=== PATIENT | female | born 1995 | race African-American/Black ===

== ENCOUNTER 2021-11-05 11:33 | Emergency (ER) | payer MEDICAID, SELFPAY ==
--- NOTE | ~2021-11-05 | CT_ITS ---
EXAMINATION: CT abdomen pelvis w con EXAM DATE: 11/05/2021 12:46 INDICATION: Lower abdominal pain, nausea and vomiting started Thursday. TECHNIQUE: Spiral CT of the abdomen and pelvis was performed following intravenous injection of 100 m L Omnipaque 350. Axial, coronal and sagittal images of the abdomen and pelvis were reviewed. The do se-length product (DLP) for this examination was 223.29 mGy-cm. The exposure was tailored according to patient size (auto mA exposure control), and iterative reconstruction (ASIR) was used as additiona l dose reduction technique. There is no prior study for comparison. FINDINGS: The liver, spleen, adrenal glands and pancreas are unremarkable. Gallbladder is unremarkab le. No biliary obstruction. Portal and splenic veins are patent. Kidneys enhance symmetrically. T here is no hydronephrosis. The uterus is anteverted and morphologically normal. The bladder is un remarkable. There is no retroperitoneal or pelvic lymphadenopathy. The appendix is normal. The stomach and small bowel are unremarkable. There is expected amount of c olonic stool. No free intraperitoneal gas. The heart is normal in size. There are no pericardial or pleural effusions. The lung bases are unremarkable. The bones are unremarkable. IMPRESSION: 1. No acute intra-abdominal findings. Reviewed, dictated and finalized at location A.
[2021-11-05 11:33] VITALS: BP 124/79; PULSE 89; RESP 20; TEMP 36.4; O2SAT 100
--- NOTE | 2021-11-05 11:49 | PC.NURSE ---
pt unable to provide urine sample at this time. pt declining straight cath.
[2021-11-05 11:53] LABS: Basophils Percent Auto 0.2 % (0.2-1.2); Eosinophils Percent Auto 0.2 % (0-4.4); Hematocrit 39.4 % (37.0-47.0); Hemoglobin 13.3 g/dL (12.0-15.0); Immature Granulocyte Absolute 0.06 K/mm3 (0.00-0.031); Immature Granulocyte Percent A 0.5 % (0-0.5); Lymphocytes Absolute Auto 1.53 K/mm3 (0.9-3.2); Lymphocytes Percent Auto 12.7 % (18.3-44.2); Mean Corpuscular HGB Conc 33.8 g/dl (32-36); Mean Corpuscular Hemoglobin 28.4 pg (26-34); Mean Corpuscular Volume 84.2 fl (80-100); Mean Platelet Volume 10.5 fl (7.4-10.4); Monocytes Absolute Auto 0.6 K/mm3 (0.1-0.6); Monocytes Percent Auto 5.3 % (2.6-8.5); Neutrophils Absolute Auto 9.8 K/mm3 (1.3-6.7); Neutrophils Percent Auto 81.1 % (45.5-73.1); Platelet Count Result 197 k/mm3 (150-375); Red Blood Count 4.68 M/mm3 (4.2-5.4); Red Cell Distribution Width 12.8 % (11.5-14.5)
--- NOTE | 2021-11-05 11:59 | ED.ABDPAIN ---
HPI - Abdominal Pain General Chief Complaint: Abdominal Pain Stated Complaint: abd pain/cramping Time Seen by Provider: 11/05/21 11:59 Source: patient Mode of arrival: EMS History of Present Illness HPI narrative: Patient is a 25 yo female with a history of nausea/vomiting over the past 6 months, presenting to the ER for evaluation of nausea, vomiting, abdominal pain. Pt reports history of this on Thursday in which she was seen at [facility] and ultimately discharged home. Patient states that she has intermittently had nausea, vomiting, cramping abdominal pain over the past 6 months. Patient states there are no medications at home that work. She reports that she thought her symptoms were attributed to marijuana that she discontinued that several days ago. Denies any drug use or alcohol use. Denies any fever, chills, chest pain, shortness of breath. Denies dysuria, hematuria, vaginal discharge or abnormal bleeding. She is currently menstruating. Patient does not believe she is . She denies dysuria or hematuria. Patient reports generalized, cramping abdominal pain throughout her entire abdomen without radiation to the flank. Patient reports onset this morning while she was at work. Patient states she was able to eat some cereal this morning. No other oral intake today. Patient denies any recent sick contacts. Related Data Allergies Allergy/AdvReac Type Severity Reaction Status Date / Time No Known Allergies Allergy Verified 11/05/21 11:40 Review of Systems Review of Systems: CONSTITUTIONAL: Denies fever, chills, or sweats. EYES: Denies visual changes, redness, or discharge. ENT: Denies rhinorrhea, congestion, sore throat, or otalgia. CARDIOVASCULAR: Denies chest pain, palpitations, or edema. RESPIRATORY: Denies cough or dyspnea. GASTROINTESTINAL: Reports cramping abdominal pain, nausea and vomiting GENITOURINARY: Denies dysuria or hematuria. SKIN: Denies rash or itching. MUSCULOSKELETAL: Denies back pain, joint pain, or myalgia. NEUROLOGIC: Denies headache, numbness, or weakness. [facility] Social History Social History (Updated 11/05/21 @ 12:09 by Chantelle Anaya MD) Smoking status: Never smoker Alcohol intake: never Substance use: former Substance use type: marijuana Gender identity (if verbalized by the patient): Female Exam Narrative: GENERAL: Awake, alert, distressed appearing, rocking on bed, moaning HEAD: Normocephalic, atraumatic. EYES: PERRLA and EOMI. ENT: Nares clear, no rhinorrhea or epistaxis. Mucous membranes moist. NECK: Supple. CHEST: No respiratory distress, breathing even and non labored HEART: Regular rate, sinus rhythm ABDOMEN:Non distended, diffuse tenderness throughout on exam, no rebound or guarding, no flank tenderness, no suprapubic tenderness on exam EXTREMITIES: Normal range of motion. No edema. SKIN: Warm, dry, no rash. NEURO:No focal deficits. Alert and oriented x3 Course Vital Signs Vital signs: Vital Signs Temperature 36.4 C 11/05/21 11:33 Pulse Rate 89 11/05/21 11:33 Respiratory Rate 20 11/05/21 11:33 Blood Pressure 124/79 11/05/21 11:33 Pulse Oximetry 100 11/05/21 11:33 Temperature 36.4 C 11/05/21 11:33 Pulse Rate 86 11/05/21 12:24 Respiratory Rate 16 11/05/21 12:24 Blood Pressure 139/90 11/05/21 12:24 Pulse Oximetry 99 11/05/21 12:24 MDM - Abdominal Pain MDM Narrative Medical decision making narrative: Patient presented to our facility for evaluation of recurrent nausea and vomiting that she has had intermittently over the past 6 months. Patiently recently seen at outside facility with negative work-up, presents here today with stable vital signs. She is uncomfortable appearing on exam with diffuse abdominal tenderness without peritoneal signs. IV access was obtained and labs were drawn. Patient was given IV fluids, antiemetic, Haldol as I thought that this may be consistent with cyclical vomiting given her sympt
[2021-11-05 12:03] LABS: Alanine Aminotransferase 18 U/L (4-35); Albumin Level 4.3 g/dL (3.5-5.1); Alkaline Phosphatase 50 U/L (38-126); Anion Gap 9 mmol/L (8-16); Aspartate Amino Transferase 53 U/L (14-36); Bilirubin,Total 0.5 mg/dL (0.2-1.3); Blood Urea Nitrogen 9 mg/dL (7-17); Calcium 8.6 mg/dL (8.4-10.2); Carbon Dioxide 22 mmol/L (22-30); Chloride 105 mmol/L (98-107); Estimated CRCL calculation 100 ml/min; Estimated Glomerular Filt Rate > 60; Glucose 113 mg/dL (65-110); Lipase 45 U/L (23-300); Potassium 3.6 mmol/L (3.4-5.0); Sodium 136 mmol/L (137-145)
[2021-11-05] MEDS: HALOPERIDOL LACTATE 5 MG/ML VIAL 2.5 MG IV PUSH (12:16)
[2021-11-05] MEDS: FAMOTIDINE 20 MG/2 ML VIAL IV PUSH (12:16)
[2021-11-05] MEDS: LORazepam INJ (*CRX) 2 MG/ML VIAL 0.5 MG IV PUSH (12:17)
[2021-11-05 12:24] VITALS: BP 139/90; PULSE 86; RESP 16; O2SAT 99
[2021-11-05 12:46] LABS: Appearance Urine Cloudy (Clear); Bilirubin Urine Negative (Negative); Blood Urine 3+ (Negative); Color Urine Amber (Yellow); Glucose Urine UA Negative (Negative); Ketones Urine 4+ mg/dL (Negative); Leukocyte Esterase Ur Negative LEU/UL (Negative); Nitrate Urine Negative (Negative); Protein Urine 2+ mg/dL (Negative); Specific Grav Ur 1.025 (1.001-1.035); Urobilinogen Urine 0.2 mg/dL (<2.0)
[2021-11-05 12:51] LABS: Mucus Urine Rare /lpf; RBC Urine >75 /hpf (0-2); Squamous Epithelial Cell Urine Moderate /hpf (Few)
[2021-11-05 12:53] LABS: Add Urine Microscopic? YES
[2021-11-05] MEDS: DEXTROSE 5%/0.45% SOD CHL 1,000 ML 300 ML IV CONT (13:17)
[2021-11-05] MEDS: oxyCODONE/ACETAMINOPHEN (*CRX) 5-325 MG TABLET 1 TABLET PO (13:29)
--- NOTE | 2021-11-05 14:08 | PC.NURSE ---
Pt given d/c instructions. Awaiting ride home.
[2021-11-05 14:22] VITALS: BP 127/87; PULSE 78; RESP 14; O2SAT 99
== END 2021-11-05 14:24 | disposition home or self-care (01) ==
PROVIDERS: Emergency Medicine; Emergency Provider Emergency Medicine
DX: R11.2 Nausea with vomiting, unspecified (principal); R10.9 Unspecified abdominal pain
CPT/HCPCS: 36415; 74177; 80053; 81001; 81025; 83690; 85025; 87086; 96361; 96374; 96375; 99284; A9270; J1630; J2060; Q9967